=== PATIENT | female | born 1980 | race Caucasian/White ===

== ENCOUNTER 2020-06-15 20:22 | Emergency (ER) | payer OTHER ==
[~2020-06-15] VITALS: Ht 167.6 cm; Wt 63.0 kg
[2020-06-15 21:01] LABS: URINE BILIRUBIN NEGATIVE (Negative); URINE BLOOD 3+ (Negative); URINE CLARITY CLEAR; URINE COLOR YELLOW; URINE GLUCOSE-RANDOM* NEGATIVE (Negative); URINE KETONES 2+ (Negative); URINE LEUKOCYTES-REFLEX NEGATIVE (Negative); URINE NITRITE-REFLEX NEGATIVE (Negative); URINE PROTEIN (DIPSTICK) 1+ (Negative); URINE SPECIFIC GRAVITY >= 1.030 (1.005-1.035); URINE UROBILINOGEN 0.2 E.U./dl (0.2-1.0)
[2020-06-15 21:01] LABS: HEMATOCRIT 37.9 % (37.0-47.0); HEMOGLOBIN 12.4 gm/dL (12.0-15.0); MCH 28.2 pg (26.0-34.0); MCHC 32.8 g/dL (28.0-37.0); MCV 86.1 fL (80.0-100.0); PLATELET COUNT 209 thou/uL (150-400); RBC 4.41 mil/uL (4.20-5.00); RDW 13.4 % (10.5-14.5); WBC 8.1 thou/uL (4.0-11.0)
[2020-06-15 21:08] LABS: CALCIUM 9.2 mg/dL (8.5-10.1); CREATININE 0.9 mg/dL (0.6-1.0); POTASSIUM 3.3 mmol/L (3.5-5.1)
[2020-06-15 21:11] LABS: MUCUS 4-6 Moderate strn/LPF (None Seen); SQUAMOUS 0-3 Few /LPF (0-3); URINE RBC >20 Many /HPF (0-2)
[2020-06-15 21:12] LABS: URINE WBC-REFLEX 6-15 Few /HPF (0-5); YEAST-REFLEX Present (None Seen)
[2020-06-15 21:13] LABS: CASTS None Seen /LPF (None Seen); CRYSTALS None Seen /LPF (None Seen)
[2020-06-15 21:15] LABS: ALBUMIN 4.1 g/dL (3.4-5.0); TOTAL BILIRUBIN 0.8 mg/dL (0.2-1.0); TOTAL PROTEIN 7.8 g/dL (6.4-8.2)
[2020-06-15 21:35] LABS: ABSOLUTE NEUTROPHILS 5.4 thou/uL (1.4-8.2)
[2020-06-15 21:36] LABS: ATYPICAL LYMPHS 2 %
[2020-06-15 21:37] LABS: ANISOCYTOSIS 1+; POLYCHROMASIA SLIGHT
[2020-06-15] MEDS ORDERED: ZOFRAN ODT4 MG PO (22:24)
[2020-06-15] MEDS ORDERED: NORCO5 PO (22:24)
[2020-06-15 22:53] VITALS: BP 121/60
== END 2020-06-15 22:55 | disposition home or self-care (01) ==
LOC: ER 20:22
PROVIDERS: Emergency Medicine
DX: N20.1 Calculus of ureter (principal); R31.9 Hematuria, unspecified